=== PATIENT | female | born 1990 | race Caucasian/White ===

== ENCOUNTER → 2016-12-26 | Outpatient (CLI) | payer OTHER ==
[~2016-12-26] MED LIST: ALBUTEROL17 GM INH; ALLEGRA PO; ATARAX PO; BACTRIM DS TABL1 TA1 PO; BENADRYL PO; BENADRYL25 MG; BENZTROPINE MESY1 MG PO; BUSPIRONE HCL7.5 MG PO; CERTAGEN PO; CETIRIZINE HCL10 MG PO; CLOZAPINE25 MG PO; COGENTIN1 MG PO; DEPAKOTE PO; DESYREL100 MG PO; DESYREL50 M1 PO; DICYCLOMINE HCL20 MG PO; DULERA 100 MCG/13 GM IH; FISH OIL 1,0001 EAC1 PO; GABAPENTIN300 MG PO; GABAPENTIN600 MG PO; KEPPRA500 M1 PO; KLONOPIN PO; LEXAPRO20 MG PO; LIBRIUM PO; LITHIUM CARBON150 MG PO; LITHIUM CARBON300 M1 PO; LITHIUM CARBON450 M1 PO; LITHIUM PO; LOPRESSOR PO; METFORMIN PO; METOPROLOL SUC100 MG PO; METOPROLOL SUCC25 MG PO; MOTRIN600 MG PO; NEURONTIN PO; NEURONTIN600 MG PO; NORCO 5/325 TAB1 TAB PO; NUTROPIN INJ; PROPRANOLOL HCL20 MG; PROVERA PO; RELAFEN PO; RISPERDAL M-TAB1 MG PO; RISPERDAL37.5 MG/2 IM; RISPERIDONE PO; SINGULAIR PO; SKELAXIN PO; SYNTHROID PO; SYNTHROID0.05 MG PO; TOPROL XL PO; TOPROL XL100 MG PO; TOPROL XL50 MG PO; TYLENOL #3 PO; ULTRAM PO; URSODIOL250 MG PO; VISTARIL50 MG PO; VIVELLE.0375 MG/2 TOP; XANAFLEX; ZANAFLEX PO; [UNRECOGNIZED DRUG - OTHER] PO
[2016-12-26 10:49] LABS: BASOPHIL% 0.5 % (0-2.5); EOSINOPHIL# 0.1 X10e3 (0-0.7); EOSINOPHIL% 0.8 % (0.0-7.0); HEMATOCRIT 40.1 % (35.0-45.0); HEMOGLOBIN 13.3 gm/dL (12.0-16.0); LYMPHOCYTE# 1.1 X10e3 (1.0-3.5); LYMPHOCYTE% 15.4 % (17.0-45.0); MEAN CELL VOLUME 89.7 FL (83-96); MEAN CORPUSCULAR HEMOGLOBIN 29.8 PG (28-34); MEAN CORPUSCULAR HGB CONC 33.2 g/dL (30-36); MEAN PLATELET VOLUME 8.8 FL (6.5-11.5); MONOCYTE# 0.4 X10e3 (0-1.0); MONOCYTE% 6.2 % (3.0-12.0); NEUTROPHIL# 5.4 X10e3 (1.5-7.1); NEUTROPHIL% 77.1 % (40-75); PLATELET COUNT 235 X10e3 (140-420); RED BLOOD COUNT 4.47 X10e (3.90-5.30); RED CELL DISTRIBUTION WIDTH 12.5 % (11.0-15.5)
[2016-12-26 10:55] LABS: DIFF IND NO
[2016-12-26 11:25] LABS: ALBUMIN SERUM 3.7 g/dL (3.5-5.0); BILIRUBIN,TOTAL 0.4 mg/dL (0.2-2.0); BUN/CREATININE RATIO 23.33; CALCIUM SERUM 8.9 mg/dL (8.4-10.2); CREATININE SERUM 0.6 mg/dL (0.6-1.4); GLOM FILT RATE Estimated 125.8 mL/min (>60); POTASSIUM 4.3 mmol/L (3.5-5.1); PROTEIN TOTAL SERUM 6.5 g/dL (6.0-8.3)
== END | disposition home or self-care (01) ==
LOC: CLAB 09:21
PROVIDERS: Psychiatry & Neurology Psychosomatic Medicine
DX: E78.5 Hyperlipidemia, unspecified (principal); F70 Mild intellectual disabilities; E03.9 Hypothyroidism, unspecified; D64.9 Anemia, unspecified; E22.1 Hyperprolactinemia; Z79.899 Other long term (current) drug therapy
CPT/HCPCS: 80053; 80061; 80299; 82306; 83036; 83789; 84146; 84443; 85025; G0480